=== PATIENT | male | born 1985 | race Caucasian/White ===

== ENCOUNTER 2019-04-20 10:03 | Emergency (ER) | payer OTHER ==
[~2019-04-20] VITALS: Ht 180.3 cm; Wt 92.6 kg
[~2019-04-20 10:03] MED LIST: ACET500C5 PO; HYDROCODONE PO; ONDA4TAB8 PO; PERCOCET PO; PROTONIX; TIZANIDINE PO
[2019-04-20 10:06] VITALS: Ht 180.3 cm; Wt 92.6 kg
[2019-04-20] MEDS ORDERED: morphine 4 MG/ML VIAL IV STA (10:39)
[2019-04-20] MEDS ORDERED: ONDANSETRON 4 MG INJ IV STA (10:39)
[2019-04-20] MEDS ORDERED: SOD CHLORIDE 0.9% 1,000 ML IV STA (10:39)
--- NOTE | 2019-04-20 10:50 | ERD ---
ER Documentation Chief Complaint Chief Complaint ON AND OFF ABD PAIN FOR SEVERAL WEEKS NOW HPI Patient is a 32 years old male with medical history of hypertension presenting to the ED for severe abdominal pain, nausea, NBNB emesis, and significant watery diarrhea X 5 to 6 weeks. Patient admits to having multiple diarrhea episodes and is able to recall the amount time he visits bathroom. Patient denies fever, chills, night sweats stating that the abdominal pain is severe that is worse on the left upper quadrant. Patient admits that he was referred by his GI specialist earlier today to the ED for further evaluation. Patient admits to losing unintentional 25 pound weight loss since onset of symptoms. Patient reports family history of Crohn's disease on mother side. Patient reports previous ED visit revealed leukocytosis of 18K with negative abdominal-pelvic CT scan. Patient's ER referral from GI specialist reports Endoscopy and Colonoscopy prior authorization has been initiated. ROS All systems reviewed and are negative except as per history of present illness. Medications Home Meds Active Scripts Acetaminophen* (Tylophen*) 500 Mg Capsule, 2 CAP PO Q8H PRN for PAIN AND OR ELEVATED TEMP, #20 CAP Prov:JONATHON MORELOS PA-C 04/20/19 Ondansetron Hcl* (Zofran*) 4 Mg Tablet, 4 MG PO Q8H PRN for NAUSEA AND/OR VOMITING, #30 TAB Prov:JONATHON MORELOS PA-C 04/20/19 Allergies Allergies: Coded Allergies: No Known Allergy (Unverified , 04/20/19) PMhx/Soc Medical and Surgical Hx: pt denies Medical Hx History of Surgery: Yes (BACK ) Anesthesia Reaction: No Hx Neurological Disorder: No Hx Respiratory Disorders: No Hx Cardiac Disorders: No Hx Psychiatric Problems: No Hx Miscellaneous Medical Probl: No Hx Alcohol Use: No Hx Substance Use: No Hx Tobacco Use: No Smoking Status: Never smoker FmHx Family History: No diabetes, No coronary disease, No other Physical Exam Vitals Vital Signs Date Temp Pulse Resp B/P (MAP) Pulse Ox O2 O2 Flow FiO2 Time Delivery Rate 04/20/19 81 18 Room Air 14:40 04/20/19 98.1 71 19 177/100 100 10:06 (125) Physical Exam Const: Patient in some mild acute distress covering his abdomen. Head: Atraumatic. Resp: Clear to auscultation bilaterally Cardio: Regular rate and rhythm, no murmurs Abd: Soft, Mild distension. Normal bowel sounds. Tenderness to palpation with generalized abdominal tenderness. Back: No midline or flank tenderness. Negative CVAT. Psych: Normal Mood and Affect Result Diagram: 04/20/19 1051 04/20/19 1051 Results 24 hrs Laboratory Tests Test 04/20/19 10:51 White Blood Count 14.8 10^3/ul Red Blood Count 5.09 10^6/ul Hemoglobin 15.4 g/dl Hematocrit 44.2 % Mean Corpuscular Volume 86.8 fl Mean Corpuscular Hemoglobin 30.3 pg Mean Corpuscular Hemoglobin Concent 34.8 g/dl Red Cell Distribution Width 11.6 % Platelet Count 442 10^3/UL Mean Platelet Volume 8.7 fl Immature Granulocytes % 0.300 % Neutrophils % 82.3 % Lymphocytes % 12.7 % Monocytes % 4.4 % Eosinophils % 0.1 % Basophils % 0.2 % Nucleated Red Blood Cells % 0.0 /100WBC Immature Granulocytes # 0.050 10^3/ul Neutrophils # 12.2 10^3/ul Lymphocytes # 1.9 10^3/ul Monocytes # 0.7 10^3/ul Eosinophils # 0.0 10^3/ul Basophils # 0.0 10^3/ul Nucleated Red Blood Cells # 0.0 10^3/ul Urine Color YELLOW Urine Clarity CLEAR Urine pH 8.0 Urine Specific [place] 1.020 Urine Ketones 1+ mg/dL Urine Nitrite NEGATIVE mg/dL Urine Bilirubin NEGATIVE mg/dL Urine Urobilinogen NEGATIVE mg/dL Urine Leukocyte Esterase NEGATIVE Ubaldo/ul Urine Microscopic RBC 28 /HPF Urine Microscopic WBC 1 /HPF Urine Bacteria FEW /HPF Urine Mucus MANY /HPF Urine Hemoglobin NEGATIVE mg/dL Urine Glucose NEGATIVE mg/dL Urine Total Protein 1+ mg/dl Sodium Level 138 mmol/L Potassium Level 4.0 mmol/L Chloride Level 100 mmol/L Carbon Dioxide Level 23 mmol/L Anion Gap 15 Blood Urea Nitrogen 12 mg/dl Creatinine 0.98 mg/dl Est Glomerular Filtrat Rate mL/min > 60 mL/min Glucose Level 137 mg/dl Calcium Level 10.9 mg/dl Total Bilirubin 0.9 mg/dl Direct Bilirubin 0.00 mg/dl Indirect Bilirubin 0.9 mg/dl Aspartate Amino Transf (AST/SGOT) 37 IU/L Alanine Aminotransferase (ALT/SGPT) 53 IU/L Alkaline Phosphatase 77 IU/L Total Protein 9.6 g/dl Albumin 5.5 g/dl Globulin 4.10 g/dl Albumin/Globulin Ratio 1.34 Lipase 48 U/L Current Medications Medications Dose Sig/Gonzalo Start Time Status Last (Trade) Ordered Route PRN Stop Time Admin Dose Reason Admin Sodium 1,000 ml @ Q1H STAT 04/20/19 DC 04/20/19 Chloride 1,000 mls/hr IV 10:39 04/20/19 10:54 11:38 Morphine 4 mg ONCE STAT 04/20/19 DC 04/20/19 Sulfate IV 10:39 04/20/19 10:54 (morphine) 10:41 Ondansetron 4 mg ONCE STAT 04/20/19 DC 04/20/19 HCl (Zofran IV 10:39 04/20/19 10:54 Inj) 10:41 1 tab ONCE ONCE 04/20/19 DC 04/20/19 Diphenoxylate PO 11:00 04/20/19 11:02 HCl/ 11:01 Atropine (Lomotil) 0.5 mg ONCE STAT 04/20/19 DC 04/20/19 Hydromorphone IV 12:16 04/20/19 12:37 HCl 12:17 (Dilaudid) Procedures/MDM Patient was seen and evaluated for severe abdominal pain referred by his GI s pecialist. CBC, CMP, urinalysis, lipase revealed mildly elevated leukocytosis otherwise unremarkable. IV fluids, Zofran IV, Lomotil, Morphine followed by Dilaudid administered in ED. Repeat abdominal exam post medication administration revealed no tenderness with patient reports significant improvement of pain. Patient is most likely experiencing early symptoms of IBD without acute complications that does not require no further workup. Low suspicion of diverticulitis, perforation, SMA, appendicitis, cholecystitis, pancreatitis. Patient is experiencing asymptomatic HTN most likely due to stress without any signs of end organ damage. Patient is stable and will be discharged. Will up with PCP and GI specialist for possible IBS versus IBD. Patient started to yell at provider while verbally reporting to being sarcastic when provider told patient that he is currently stable (vitals) with improvement of pain. Patient reported that he did not like the idea of having these acute exacerbation and requested that he get admitted to the Hospital for stat Endoscopy and Colonoscopy. Provider informed patient that he is not is not in any medical emergency as of now and does not require admission. Patient then called his parents in who requested that the attending be known and informed that patient be admitted. Provider consulted with Dr. Vera who agreed with providers management plan. Dr. Vera agreed for patient to have outpatient follow up with GI specialist and recommended patient follow up with body technician/painter for narcotics. Patient's father threatened patient with a lawsuit after provider informed about attendings (Dr. Vera) consultation. Nurse Boyd was with provider during consultation with patient and parents of patient. Departure Diagnosis: Primary Impression: Abdominal pain Abdominal location: generalized Qualified Codes: R10.84 - Generalized abdominal pain Condition: Stable Patient Instructions: Abdominal Pain Referrals: [facility] Additional Instructions: Patient advised to return to the ED immediately for new or worsening symptoms. Patient advised to follow up with primary care provider in the next 24-48 hours. Patient verbalized understanding and agrees with treatment plan and course of action. If patient has no primary care they may follow up with [facility] [address] [place] [id number] or [facility] [address] [place] [address] or [facility] [address] [place] [address] JONATHON MORELOS PA-C Apr 20, 2019 10:50
[2019-04-20] MEDS ORDERED: DIPHENOXYLATE/ATROPINE TAB PO ONE (11:00)
[2019-04-20] MEDS ORDERED: HYDROmorphONE 0.5 MG/0.5 ML SYG IV STA (12:16)
[2019-04-20 14:40] VITALS: BP 158/95; PULSE 81; RESP 18
== END 2019-04-20 14:42 | disposition home or self-care (01) ==
LOC: FTE 10:03
DX: R10.84 Generalized abdominal pain (principal); I10 Essential (primary) hypertension; R11.2 Nausea with vomiting, unspecified
CPT/HCPCS: 36415; 80053; 81001; 83690; 85025; 96374; 96375; J1170; J2270; J2405; J7030; Z7502; Z7610

== ENCOUNTER 2019-05-04 09:58 | Day surgery (SDC) | payer OTHER ==
[~2019-05-04] VITALS: Ht 154.9 cm; Wt 92.0 kg
[2019-05-04 10:51] VITALS: Ht 154.9 cm; Wt 92.0 kg
[2019-05-04 10:58] VITALS: BP 145/79; PULSE 81; RESP 18
[2019-05-04] MEDS ORDERED: PROPOFOL 40 ML ONE (11:20)
== END 2019-05-04 14:25 | disposition home or self-care (01) ==
LOC: GIL 09:58
PROVIDERS: ATTEND Internal Medicine Gastroenterology
DX: K29.50 Unspecified chronic gastritis without bleeding (principal); K31.84 Gastroparesis; I10 Essential (primary) hypertension
CPT/HCPCS: 88305; 88312